=== PATIENT | male | born 1990 | race Caucasian/White ===

== ENCOUNTER 2017-07-03 20:33 | Emergency (ER) | payer OTHER ==
[~2017-07-03] VITALS: Ht 167.6 cm; Wt 79.4 kg
[2017-07-03 22:11] LABS: URINE BILIRUBIN NEGATIVE (Negative); URINE BLOOD TRACE (Negative); URINE CLARITY CLEAR; URINE COLOR YELLOW; URINE GLUCOSE-RANDOM NEGATIVE (Negative); URINE KETONES NEGATIVE (Negative); URINE LEUKOCYTES-REFLEX NEGATIVE (Negative); URINE NITRITE-REFLEX NEGATIVE (Negative); URINE PROTEIN NEGATIVE (Negative); URINE SPECIFIC GRAVITY 1.025 (1.005-1.030); URINE UROBILINOGEN 0.2 E.U./dl (0.2-1.0)
[2017-07-03] MEDS ORDERED: CIPROFLOXACIN500 M1 PO (22:27)
[2017-07-03 22:33] VITALS: BP 133/82
== END 2017-07-03 22:33 | disposition home or self-care (01) ==
LOC: M.ERS 20:33
PROVIDERS: Family Medicine
DX: R30.0 Dysuria (principal); F41.9 Anxiety disorder, unspecified; Z88.8 Allergy status to other drugs, medicaments and biological substances; Z88.6 Allergy status to analgesic agent

== ENCOUNTER 2017-07-07 18:19 | Emergency (ER) | payer OTHER ==
[~2017-07-07] VITALS: Ht 167.6 cm; Wt 77.1 kg
[~2017-07-07 18:19] MED LIST: CIPROFLOXACIN500 M1 PO
[2017-07-07 19:39] LABS: URINE BILIRUBIN NEGATIVE (Negative); URINE BLOOD TRACE (Negative); URINE CLARITY CLEAR; URINE COLOR YELLOW; URINE GLUCOSE-RANDOM NEGATIVE (Negative); URINE KETONES NEGATIVE (Negative); URINE LEUKOCYTES-REFLEX NEGATIVE (Negative); URINE NITRITE-REFLEX NEGATIVE (Negative); URINE PROTEIN TRACE (Negative); URINE UROBILINOGEN 0.2 E.U./dl (0.2-1.0)
[2017-07-07] MEDS ORDERED: PHENAZOPYRIDIN200 M2 PO (19:58)
[2017-07-07 20:05] VITALS: BP 135/86
== END 2017-07-07 20:05 | disposition home or self-care (01) ==
LOC: M.ERS 18:19
PROVIDERS: Physician Assistant
DX: L24.9 Irritant contact dermatitis, unspecified cause (principal); R31.9 Hematuria, unspecified; F10.20 Alcohol dependence, uncomplicated; Z88.1 Allergy status to other antibiotic agents; Z88.8 Allergy status to other drugs, medicaments and biological substances; Z88.6 Allergy status to analgesic agent

== ENCOUNTER 2021-05-12 14:42 | Emergency (ER) | payer OTHER ==
[~2021-05-12] VITALS: Ht 167.6 cm; Wt 77.1 kg
[~2021-05-12 14:42] MED LIST changes: +PHENAZOPYRIDIN200 M2 PO
[2021-05-12 14:55] VITALS: BP 00/00
== END 2021-05-12 14:56 | disposition left against medical advice (07) ==
LOC: M.ERS 14:42
DX: J02.9 Acute pharyngitis, unspecified (principal); R05.9 Cough, unspecified; F41.9 Anxiety disorder, unspecified; Z53.21 Procedure and treatment not carried out due to patient leaving prior to being seen by health care provider; Z88.1 Allergy status to other antibiotic agents; Z88.8 Allergy status to other drugs, medicaments and biological substances; Z88.6 Allergy status to analgesic agent